=== PATIENT | female | born 2000 | race Caucasian/White ===

== ENCOUNTER 2022-04-29 10:12 | Emergency (ER) | payer BC, SELFPAY ==
--- NOTE | 2022-04-29 10:18 | ED.EAR ---
HPI - Ear Problem General Chief complaint: Ear Stated complaint: rt ear pain Time Seen by Provider: 04/29/22 10:17 Source: patient Mode of arrival: ambulatory Limitations: no limitations History of Present Illness HPI Narrative: Rina is a 22-year-old female patient presenting to the clinic today with complaints of right sided ear pain. She reports she has had right-sided ear pain, headache, and runny nose x4 days. She denies any fever chills Related Data Home Medications Medication Instructions Recorded Confirmed levonorgestrel-ethinyl estradiol 1 tablet DAILY 04/29/22 04/29/22 0.1 mg-20 mcg tablet (Vienva) Allergies Allergy/AdvReac Type Severity Reaction Status Date / Time No Known Allergies Allergy Verified 04/29/22 10:34 Review of Systems Review of Systems: Pertinent positives per HPI. Patient denies any fever, chills, rash, headache, visual changes, dizziness, sore throat, shortness of breath, chest pain, palpitations, nausea, vomiting, diarrhea, constipation, abdominal pain, or any urinary issues. PMFSH Comments At the time of my signature, I reviewed and agree with the nursing past medical, surgical, social, and family history. There is no relevant family history pertinent to the patient complaint. Exam Narrative: General: Well-developed, well nourished, in no apparent distress Head: Normocephalic, atraumatic Eyes: Pupils equally round and reactive to light bilaterally, EOM intact, sclera and conjunctive clear, no discharge, lids normal Ears: left TM intact and clear, right TM intact and bulging, ear canals clear, no drainage, grossly hearing normal. Nose: Nares patent, clear nasal discharge, no inflammation, no sinus tenderness. Mouth: Oropharynx without lesions or masses, good dentition, MMM. Neck: Supple, trachea midline, no enlargement of anterior or posterior cervical nodes, no thyroid masses or goiter palpable. Cardio: Regular rate and rhythm, s1 and s2 normal, no murmur appreciated. Resp: Clear to auscultation bilaterally anteriorly and posteriorly, no rhonchi, rales, wheezing or rubs Course Course Emergency Course: Portions of this record may have been created with voice recognition software. Level of Care: Express Care Visit Vital Signs Vital signs: Vital Signs Temperature 36.8 C 04/29/22 10:30 Pulse Rate 96 04/29/22 10:30 Respiratory Rate 18 04/29/22 10:30 Blood Pressure 142/96 H 04/29/22 10:30 Pulse Oximetry 99 04/29/22 10:30 Oxygen Delivery Room Air 04/29/22 10:30 Temperature 36.8 C 04/29/22 10:30 Pulse Rate 96 04/29/22 10:30 Respiratory Rate 18 04/29/22 10:30 Blood Pressure 142/96 H 04/29/22 10:30 Pulse Oximetry 99 04/29/22 10:30 Oxygen Delivery Room Air 04/29/22 10:30 Vital signs reviewed Medical Decision Making MDM Narrative Medical decision making narrative: At the time of the patient's resting comfortably on the exam table. I suspect the patient has right-sided eustachian tube dysfunction with upper respiratory infection. Prescription for prednisone was sent to the pharmacy. Supportive measures were discussed with the patient she voiced understanding of discharge instructions and agrees to the treatment plan. Differential Diagnosis Differential Diagnosis: eustachian tube dysfunction, otitis media, otitis externa, upper respiratory infection Vital Signs Vital Signs: Vital Signs Temperature 36.8 C 04/29/22 10:30 Pulse Rate 96 04/29/22 10:30 Respiratory Rate 18 04/29/22 10:30 Blood Pressure 142/96 H 04/29/22 10:30 Pulse Oximetry 99 04/29/22 10:30 Oxygen Delivery Room Air 04/29/22 10:30 Temperature 36.8 C 04/29/22 10:30 Pulse Rate 96 04/29/22 10:30 Respiratory Rate 18 04/29/22 10:30 Blood Pressure 142/96 H 04/29/22 10:30 Pulse Oximetry 99 04/29/22 10:30 Oxygen Delivery Room Air 04/29/22 10:30 Discharge Plan Discharge Clinical Impression: Eustachian tube
[2022-04-29 10:30] VITALS: BP 142/96; PULSE 96; RESP 18; TEMP 36.8; O2SAT 99
== END 2022-04-29 10:49 | disposition home or self-care (01) ==
LOC: EXPTROY 10:24
PROVIDERS: Emergency Provider Nurse Practitioner Family
DX: H69.81 Other specified disorders of Eustachian tube, right ear (principal); J06.9 Acute upper respiratory infection, unspecified; J45.909 Unspecified asthma, uncomplicated
CPT/HCPCS: 99203; G0463

== ENCOUNTER 2022-06-22 11:53 | Emergency (ER) | payer BC, SELFPAY ==
[2022-06-22 12:31] VITALS: BP 139/96; PULSE 95; RESP 20; TEMP 36.5; O2SAT 100
[2022-06-22 12:33] VITALS: BP 139/96; PULSE 95; RESP 20; TEMP 36.5; O2SAT 100
--- NOTE | 2022-06-22 12:59 | ED.URI ---
HPI - URI/Sore Throat General Chief Complaint: Upper Respiratory Infection Stated Complaint: Having Trouble Swallowing Time Seen by Provider: 06/22/22 12:59 History of Present Illness HPI Narrative: 22-year-old female presented for complaint of sore throat and fever since yesterday. 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 She endorses mild sinus congestion. She is taking Tylenol and ibuprofen for symptoms. She also takes regular antihistamine. She is able to talk and swallow her secretions. She denies shortness of breath, wheezing, nausea, vomiting, diarrhea. Related Data Home Medications Medication Instructions Recorded Confirmed levonorgestrel-ethinyl estradiol 1 tablet DAILY 04/29/22 06/22/22 0.1 mg-20 mcg tablet (Vienva) Allergies Allergy/AdvReac Type Severity Reaction Status Date / Time No Known Allergies Allergy Verified 06/22/22 12:32 Review of Systems Review of Systems: ROS per HPI Exam Narrative: GENERAL: Ill-appearing, no acute distress. EYES: conjunctivae clear ENT: Mucous membranes moist. TMs pearly sotelo with normal light reflex bilaterally; no tragal tenderness. Oropharynx severely erythematous. Tonsils enlarged 2+ without exudate. No drooling, no hoarseness, no trismus, uvula midline. No tripod positioning, hot potato voice, or soft palate swelling. NECK: Supple. No lymphadenopathy CHEST: Clear to auscultation, breath sounds equal. No respiratory distress, speaks in full sentences. HEART: Regular rate and rhythm. No murmur heard. SKIN: Warm, dry, no rash. NEURO: Alert and oriented x3. Course Course Emergency Course: Patient is aware of diagnosis, understands and agrees to treatment plan. Anticipatory guidance given. Patient agrees to follow-up as directed and is aware of reasons to seek care at the emergency department. Portions of this record may have been created with voice recognition software Level of Care: Express Care Visit Vital Signs Vital signs: Vital Signs Temperature 97.7 F 06/22/22 12:31 Pulse Rate 95 06/22/22 12:31 Respiratory Rate 20 06/22/22 12:31 Blood Pressure 139/96 H 06/22/22 12:31 Pulse Oximetry 100 06/22/22 12:31 Oxygen Delivery Room Air 06/22/22 12:31 Temperature 97.7 F 06/22/22 12:33 Pulse Rate 95 06/22/22 12:33 Respiratory Rate 20 06/22/22 12:33 Blood Pressure 139/96 H 06/22/22 12:33 Pulse Oximetry 100 06/22/22 12:33 Oxygen Delivery Room Air 06/22/22 12:33 MDM - URI/Sore Throat MDM Narrative Medical decision making narrative: Due to lack of resources, unable to test for rapid strep at this time. Patient verbalizes understanding. Plan to with antibiotics based on PE and CC. Advised supportive measures and signs and symptoms to go to the ER. Patient is appropriate for outpatient treatment and follow-up. Differential Diagnosis Differential diagnosis: Likely upper respiratory infection, viral infection and pharyngitis Discharge Plan Discharge Clinical Impression: Pharyngitis Patient Disposition: Home, Self-Care Condition: Stable Instructions: Antibiotic Form, Strep Throat (ED) Additional Instructions: - Take the antibiotic as directed. Fever and sore throat typically resolve within one to three days. Most patients can return to work after 24 hours of antibiotic therapy, provided you are fever free and otherwise well. -Eat and drink things that are easy to swallow, like soft foods, cool liquids, tea with honey, or popsicles . -Salt water gargles and/or may use topical anesthetic ( Chloraseptic spray) or lozenges to relieve dryness or throat pain -Alternate Tylenol and ibuprofen as needed for pain and fever as directed. -Frequent hand washing or hand systems qa analyst is one of the best ways to prevent spread of infection. Throw away the toothbrush after 24hours of antibiotic. -Follow up with primary care provider in 2-3 days if condition is not im
== END 2022-06-22 13:15 | disposition home or self-care (01) ==
PROVIDERS: Emergency Provider Nurse Practitioner Family
DX: J02.9 Acute pharyngitis, unspecified (principal)
CPT/HCPCS: 99213; G0463

== ENCOUNTER 2023-10-28 17:19 | Emergency (ER) | payer BC, SELFPAY ==
[2023-10-28 17:41] VITALS: BP 137/86; PULSE 89; RESP 16; TEMP 36.6; O2SAT 100
--- NOTE | 2023-10-28 18:07 | ED.GENADULT ---
HPI - General Adult General Chief complaint: Ear Stated complaint: RT Ear discomfort Source: patient Mode of arrival: ambulatory Limitations: no limitations History of Present Illness HPI narrative: Patient presents for evaluation of right ear symptoms it started a month ago. She initially felt like her ear was clogged. Today she developed pain in the right ear with muffled hearing. She denies any fever, chills, nausea, vomiting, drainage from the ear, cough or SOB. No recent sick contacted to her knowledge. She is not taking any medications to assist with her symptoms. Related Data Allergies Allergy/AdvReac Type Severity Reaction Status Date / Time No Known Allergies Allergy Verified 10/28/23 17:37 Review of Systems Review of Systems: CONSTITUTIONAL: Denies fever, chills, or sweats. EYES: Denies visual changes, redness, or discharge. ENT: Reports right sided ear pain with muffled hearing and right sided otalgia. Denies tinnitus, drainage from the ear, rhinorrhea, congestion, or sore throat CARDIOVASCULAR: Denies chest pain, palpitations, or edema. RESPIRATORY: Denies cough or dyspnea. GASTROINTESTINAL: Denies abdominal pain, nausea, vomiting, or diarrhea. GENITOURINARY: Denies dysuria or hematuria. SKIN: Denies rash or itching. MUSCULOSKELETAL: Denies back pain, joint pain, or myalgia. NEUROLOGIC: Denies headache, numbness, dizziness, or weakness. PSYCHIATRIC: Denies anxiety or depression. PMFSH Past Medical History Medical History No pertinent past medical history Surgical History Surgical History No pertinent past surgical history Family History Family History Mother Family history non-contributory Social History Social History Smoking status: Never smoker Substance use: never Living arrangements: with family Gender identity (if verbalized by the patient): Female Spiritual care concerns: No Exam Narrative: GENERAL: Well-appearing, well-nourished, and in no acute distress. HEAD: Normocephalic, atraumatic. EYES: PERRLA and EOMI. ENT: Nares clear, no rhinorrhea or epistaxis. Mucous membranes moist. Oropharynx without tonsillar hypertrophy exudate or other lesions. Right ear canal is ceruminous NECK: Supple. No adenopathy or masses. No carotid bruits or JVD CHEST: Clear to auscultation. No respiratory distress. No wheezes rales or rhonchi HEART: Regular rate and rhythm. No murmur heard. Normal peripheral pulses. ABDOMEN: Soft, nontender, nondistended, normal active bowel sounds. EXTREMITIES: Normal range of motion. No edema. SKIN: Warm, dry, no rash. NEURO: No focal deficits. Alert and oriented x3. PSYCH: Normal mood and affect. Course Course Emergency Course: This is a 23-year-old female who presented for evaluation of right-sided otalgia and muffled hearing. She had a cerumen impaction on exam. Ear was irrigated with water and H2O2. Cerumen was removed. Pt tolerated well. Ear canal was erythematous. Will dc with ofloxacin. Follow up with primary provider. Go to the ER for worsening symptoms. Pt in agreement with plan of care. Level of Care: Express Care Visit Vital Signs Vital signs: Vital Signs Temperature 36.6 C 10/28/23 17:41 Pulse Rate 89 10/28/23 17:41 Respiratory Rate 16 10/28/23 17:41 Blood Pressure 137/86 10/28/23 17:41 Pulse Oximetry 100 10/28/23 17:41 Oxygen Delivery Room Air 10/28/23 17:41 Temperature 36.6 C 10/28/23 17:41 Pulse Rate 89 10/28/23 17:41 Respiratory Rate 16 10/28/23 17:41 Blood Pressure 137/86 10/28/23 17:41 Pulse Oximetry 100 10/28/23 17:41 Oxygen Delivery Room Air 10/28/23 17:41 Medical Decision Making Vital Signs Vital Signs: Vital Sign
== END 2023-10-28 18:04 | disposition home or self-care (01) ==
PROVIDERS: Emergency Provider Nurse Practitioner
DX: H61.21 Impacted cerumen, right ear (principal)
CPT/HCPCS: 69209; 99213; A9270; G0463

== ENCOUNTER 2024-08-03 12:11 | Emergency (ER) | payer SELFPAY ==
[2024-08-03 12:25] VITALS: BP 123/68; PULSE 130; RESP 18; TEMP 37.2; O2SAT 97
[2024-08-03 12:37] LABS: EDCOVIDSCREEN Positive (Negative)
[2024-08-03 12:44] LABS: EDINFLUASCREEN Negative (Negative); EDINFLUBSCREEN Negative (Negative)
--- NOTE | 2024-08-03 12:49 | ED_ITS ---
HPI - URI/Sore Throat General Chief Complaint: Upper Respiratory Infection Stated Complaint: Fever / bodyache Time Seen by Provider: 08/03/24 12:49 Source: patient, RN notes reviewed and old records reviewed Mode of arrival: ambulatory Limitations: no limitations History of Present Illness HPI Narrative: patient presents with complaints fever, body ache, cough, and fatigue. She reports symptoms began yesterday, got much worse in the middle the night. She has been taking hlct-vct-[id number] medication for her symptoms with moderate relief. Related Data Allergies Allergy/AdvReac Type Severity Reaction Status Date / Time No Known Allergies Allergy Verified 08/03/24 12:22 Review of Systems Review of Systems: All systems reviewed & are unremarkable except as noted in HPI and below Constitutional: Constitutional: Reports no additional constitutional complaints, Reports body ache(s), Reports fever(s) and Reports lethargy ENT: Reports system reviewed and no additional complaints, except as documented, Reports nasal congestion and Reports nasal discharge Cardiovascular: Cardiovascular: Reports as per HPI and Reports no additional cardiovascular complaints Respiratory: Respiratory: Reports no additional respiratory complaints and Reports cough Gastrointestinal: Gastrointestinal: Reports no additional gastrointestinal complaints [facility], [facility] Past Medical History Medical History No pertinent past medical history Surgical History Surgical History No pertinent past surgical history Family History Family History Mother Family history non-contributory Social History Social History Smoking status: Never smoker Substance use: never Living arrangements: with family Gender identity (if verbalized by the patient): Female Spiritual care concerns: No Comments At the time of my signature, I reviewed and agree with the nursing past medical, surgical, social, and family history. There is no relevant family history pertinent to the patient complaint. Exam Const: General: cooperative, no acute distress, alert and awake Orientation/consciousness: oriented to person, oriented to place and oriented to time HENMT: Head: normal to inspection Mouth: Yes moist mucous membranes Throat: posterior oropharynx normal Resp: Effort & Inspection: normal respiratory effort and able to speak in complete sentences Auscultation: clear to auscultation bilaterally, no crack les, no rales, no rhonchi and no wheezes Cardio: Palpation: normal PMI Rate: regular rate and tachycardic Rhythm: regular rhythm Heart sounds: S1 normal heart sound present and S2 normal heart sound present Neuro: General: oriented to person, oriented to place and oriented to time Cranial nerves: Yes CN's II-XII intact bilaterally Psych: Appearance: grossly normal Thought process: Normal thought process present Insight: Good insight present (Psych) Judgement: Good judgement present (Psych) Course Course Level of Care: Express Care Visit Vital Signs Vital signs: Vital Signs Temperature 99.0 F 08/03/24 12:25 Pulse Rate 130 H 08/03/24 12:25 Respiratory Rate 18 08/03/24 12:25 Blood Pressure 123/68 08/03/24 12:25 Pulse Oximetry 97 08/03/24 12:25 Oxygen Delivery Room Air 08/03/24 12:25 Temperature 99.0 F 08/03/24 12:25 Pulse Rate 130 H 08/03/24 12:25 Respiratory Rate 18 08/03/24 12:25 Blood Pressure 123/68 08/03/24 12:25 Pulse Oximetry 97 08/03/24 12:25 Oxygen Delivery Room Air 08/03/24 12:25 Reviewed MDM - URI/Sore Throat MDM Narrative Medical decision making narrative: patient positive for COVID-19. Reassuring physical exam. Patient not in any distress. Work note provided. Patient advised to continue with mygi-eyb-tchwvin medications to treat her symptoms. Emergency department precautions discussed. Discharge instructions reviewed with patient, as well as provided in writing per nursing staff. The instructions also include specific and strict return/GO TO THE ER as well as f/u information. All questions have been answered, and the patient deny any further questions with discharge and discharge plan. Some parts of this dictation were generated by voice recognition software and may contain typographical and/or grammatical inaccuracies. Differential Diagnosis Differential diagnosis: Likely upper respiratory infection, sinusitis, viral infection and influenza Medical Records Attestation: I reviewed the patient's medical records. Lab Data Attestation: I reviewed the patient's lab results. Labs: Lab Results 08/03/24 08/03/24 Range/Units 12:36 12:42 POC Influenza A Ag Negative (Negative) POC Influenza B Ag Negative (Negative) POC SARS CoV-2 Ag Positive (Negative) Discharge Plan Discharge Clinical Impression: COVID-19 Patient Disposition: Home, Self-Care Condition: Stable Instructions: Antibiotic Form, How to Recover from COVID-19 at Home (ED) Additional Instructions: Use hheh-iiv-lmaxsqk medications to treat your symptoms. Follow package instructions. Follow-up with primary care provider. Emergency department for new or worsening Patient Language: Singaporean Prescriptions: No Action ofloxacin 0.3 % drops 10 drp RIGHT EAR DAILY 7 Days Qty: 10 0RF Follow-up/Referrals: PHYSICIAN,WOODS MANAGER [Primary Care Provider] - Stand Alone Forms: Work/School Release IP Time of Disposition: 12:58
--- OUTSIDE RECORDS SUMMARY | 2024-08-03 12:57 | XMS_ITS | Encounter Summary ---
Author Organization [facility] Address [address] [facility]. [place], [place] [id number] [place] [address] Care Team Providers Care Pattern Clerk Name Role Phone Seble Johnson Primary Care Provider [phone] Otto Sanchez APRN Primary Care Provider [phone] Encounter Details Date Type Department Care Team (Late st Contact Info) Description 06/25/2018 Abstract [facility] MultiSpecialty [facility] [address] [place] [id number] Seble Johnson FNP [address] [place] [address] Social History Tobacco Use Types Packs/Day Years Used Date Smoking Tobacco: Never Smokeless Tobacco: Never Comments Unknown Sex and Gender Information Value Date Recorded Sex Assigned at Not on file Legal Sex Female 7:37 PM CDT Gender Identity Not on file Sexual Orientation Not on file documented as of this encounter Plan of Treatment Not on file documented as of this encounter Visit Diagnoses Not on filedocumented in this encounter Care Teams Pattern Clerk Relationship Specialty Start Date End Date Seble Johnson FNP [address] [place] [address] PCP - General NURSE PRACTITIONER 06/25/18 12/02/23 Otto Sanchez APRN [address] [place] [address] PCP - General NURSE PRACTITIONER 12/03/23 documented as of this encounter
--- OUTSIDE RECORDS SUMMARY | 2024-08-03 12:57 | XMS_ITS | Encounter Summary ---
Author Organization [facility] Address Count includes the [facility] [facility] [place] [address] [place] [address] Care Team Providers Care Head Orthopedic Team Physician Name Role Phone Seble Johnson Primary Care Provider [phone] Otto Sanchez APRN Primary Care Provider [phone] Encounter Details Date Type Department Care Team (Late st Contact Info) Description 09/20/2017 Abstract [facility] [address] [place] [address] , Generic Conversion[facility] Social History Tobacco Use Types Packs/Day Years Used Date Smoking Tobacco: Never Assessed Comments Unknown Sex and Gender Information Value Date Recorded Sex Assigned at Not on file Legal Sex Female 7:37 PM CDT Gender Identity Not on file Sexual Orientation Not on file documented as of this encounter Plan of Treatment Not on file documented as of this encounter Visit Diagnoses Not on filedocumented in this encounter Care Teams Head Orthopedic Team Physician Relationship Specialty Start Date End Date Seble Johnson FNP [address] [place], [place] [id number] PCP - General NURSE PRACTITIONER 06/25/18 12/02/23 Otto Sanchez APRN [address], [place] [id number] PCP - General NURSE PRACTITIONER 12/03/23 documented as of this encounter
--- OUTSIDE RECORDS SUMMARY | 2024-08-03 12:57 | XMS_ITS | Encounter Summary ---
Author Organization [facility] Address [facility] [facility]. [place], [place] [address] [place] [address] Care Team Providers Care American Indian Studies Professor Name Role Phone Seble Johnson Primary Care Provider [phone] Otto Sanchez APRN Primary Care Provider [phone] Encounter Details Date Type Department Care Team (Late st Contact Info) Description 09/18/2022 NextDocst Message [facility] MultiSpecialty Care [facility] [address] [place] [address] Seble Johnson FNP [address] [place] [address] orange staining Social History Tobacco Use Types Packs/Day Years Used Date Smoking Tobacco: Never Smokeless Tobacco: Never Alcohol Use Standard Drinks/Week Comments Never 0 (1 standard drink = 0.6 oz pur e alcohol) AUDIT-C Answer Date Recorded Frequency of Alcohol Consumption Never 09/07/2019 Average Number of Drinks Not on file 020 Frequency of Binge Drinking Not on file 09/2019 PHQ-2 Answer Date Recorded Patient Health Questionnaire-2 Score 0 06/28/2022 Comments No Sex and Gender Information Value Date Recorded Sex Assigned at Not on file Legal Sex Female 7:37 PM CDT Gender Identity Not on file Sexual Orientation Not on file documented as of this encounter Progress Notes * TRES Flores - 09/19/2022 3:42 PM CDTFrom: Rina Revacarli StrattonHarwood To: Seble Johnson Sent: 09/18/2022 6:20 PM CDT Subject: [place] stain between my fingers Hi Luna I have some orange stain in between some of my fingers on both hands. There is nothing that could have stained them. I have scrubbed and scrubbed but it???s not going away. I have had this for about 2 days. Do I need to get blood work, or my thyroid checked? documented in this encounter Plan of Treatment Not on file documented as of this encounter Visit Diagnoses Not on filedocumented in this encounter Additional Health Concerns Assessment Noted Time PHQ-9 Depression Total Score: 0 03/13/20 21 8:28 AM CDT documented as of this encounter Care Teams American Indian Studies Professor Relationship Specialty Start Date End Date Seble Johnson FNP [address] [place] [address] PCP - General NURSE PRACTITIONER 06/25/18 12/02/23 Otto Sanchez APRN [address] [place] [address] PCP - General NURSE PRACTITIONER 12/03/23 documented as of this encounter
--- OUTSIDE RECORDS SUMMARY | 2024-08-03 12:57 | XMS_ITS | Clinical Summary ---
Author Organization [facility] Address [facility] [place] [address] [place] [address] Care Team Providers Care Setter [employer] Name Role Phone Otto Sanchez EUGENIA Primary Care Provider [phone] Allergies Active Allergy Reactions Criticality Noted Date Comments Lisdexamfetamine Tachycardia 03/13/2021 Medications naproxen 250 MG tabletIndications :Dysmenorrhea in adolescent Take 1 tablet (250 mg total) by mouth as needed. 90 tablet 1 9 Active ondansetron 4 MG tabletIndications :Nausea TAKE 1 TABLET EVERY 6 HOURSAS NEEDED FOR NAUSEA 40 tablet 9 Active triamcinolone 0.025 % creamIndications: Contact dermatitis and eczema Apply topically 2 (two) times daily. 453.6 g 0 Active fluticasone propionate 50 MCG/ACT nasal sprayIndications: Non-seasonal allergic rhinitis, unspecified trigger 2 sprays by Each Nostril route daily. 16 g 5 1 Active azithromycin (ZITHROMAX Z-HARRISON) 250 MG tabletIndications :Acute non-recurrent frontal sinusitis Take 2 tablets by mouth on day one then 1 daily for four days. 6 tablet 2 Active Additional Information Patient not taking.Reported on 05/01/2023 VIENVA 0.1-20 MG-MCG tabletIndications :Dysmenorrhea in adolescent TAKE 1 TABLET BY MOUTH DAILY 84 tablet 3 Active Additional Information Patient not taking.Reported on 05/01/2023 loratadine (CLARITIN) 10 MG tabletIndications :Non-seasonal allergic rhinitis, unspecified trigger Take 1 tablet (10 mg total) by mouth daily. 90 tablet 3 3 Active montelukast (SINGULAIR) 10 MG tabletIndications :Asthma due to environmental allergies ([facility]) Take 1 tablet (10 mg total) by mouth nightly at bedtime. at bedtime. 90 tablet 3 Active Active Problems Problem Noted Date Diagnosed Date Dysmenorrhea 06/25/2018 Non-seasonal allergic rhinitis, unspecified trig missy 06/25/2018 Scoliosis, unspecified scoli osis type, unspecified spinal region 06/25/2018 Abnormal thyroid function test 08/19/2016 Overview (09/10/2019): Transitioned From: Low thyroxine (T4) level Acquired pes planovalgus, left 05/24/2015 Acquired pes planovalgus, right 05/24/2015 Hallux valgus 05/09/2015 Foot deformity, bilateral 05/01/2015 Scoliosis 02/17/2014 Overview (09/10/2019): Description: 5 degree to the right in the LumboThoracic spine per xray 02/2014 Resolved Problems Problem Noted Date Diagnosed Date Resolved Date 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 02/03/2020 05/01/2023 Dysmenorrhea in adolescent 06/25/2018 1 Breast asymmetry in female 10/12/2013 1 Immunizations Name Administration Dates Next Due Dtap 02/14/2006, 3,2001,07/03,2001 HPV GARDASIL 9-VALENT 08/24/2020,05/25/2019,03/07 Hepatitis A (Generic) 03/24/2019 Hepatitis B/Hib 3 Dose Schedule 03/03/2002,07/03,2001 Influenza (Generic) 04/26/2009 Influenza Adult (Generic) 05/05/2020,04/23/2019 Influenza Virus, Split 6-35 Mo 8,05/08/2007,05/22/2006,05/02 REJI ([employer]) COVID-19 AD26 VACCINE 0.5 ML IM SUSP 09/18/2020 MMR 02/14/2006,03/03/2002 Menactra 02/05/2019,02/01/2016 Meningococcal Vac A,C,Y,W-135 Sc 02/01/2016 Pneumococcal (Prevnar 7) 09/17/2002,03/03/2002,1 09/03/2000 Polio Ipv (Generic) 02/14/2006, 2,2001,05/01 Tdap (Generic) 09/24/2012 Varicella Vaccine 02/01/2016,03/03/2002 Family History Medical History Relation Comments No Known Problems Brother No Known Problems Father Hypertension Maternal Grandfather Hypertension Maternal Grandmother No Known Problems Mother COPD Paternal Grandfather COPD Paternal Grandmother No Known Problems Sister Relation Status Comments Brother Alive Father Alive Maternal Grandfather Alive Maternal Grandmother Alive Mother Alive Paternal Grandfather (Age 50s) Paternal Grandmother (Age 60s) Sister Alive Social History Tobacco Use Types Packs/Day Years [...] Date Recorded Patient Health Questionnaire-2 Score 0 05/01/2023 Comments No Sex and Gender Information Value Date Recorded Sex Assigned at Not on file Legal Sex Female 7:37 PM CDT Gender Identity Not on file Sexual Orientation Not on file Last Filed Vital Signs Vital Sign Reading Time Taken Comments Blood Pressure 110/72 05/01/2023 2:39 PM CDT Pulse 89 05/01/2023 2:19 PM CDT Temperature 36.8 ??C (98.3 ??F) 05/01/2023 2:19 PM CD T Respiratory Rate 18 05/01/2023 2:19 PM CDT Oxygen Saturation 98% 05/01/2023 2:19 PM CDT Inhaled Oxygen Concentration - - Weight 58.6 kg (129 lb 3.2 oz) 05/01/2023 2:19 P M CDT Height 165.1 cm (5' 5 ) 05/01/2023 2:19 PM CDT Body Mass Index 21.5 05/01/2023 2:19 PM CDT Plan of Treatment Health Maintenance Due Date Last Done Comments Cervical Cancer Screening Pap Smear (Age 21 to 29) Every 3 Years 2001 Cervical Cancer Screening 2001 Meningococcal B Vaccine (1 of 2 - Standard) 2017 Hepatitis C 2019 Annual Physical 08/24/2021 08/24/2020 DTaP, Tdap and Td Vaccines (7 - Td or Tdap) 09/24/2022 09/24/2012, 02/14/2006, 09/17/2002, Additional history exists COVID-19 Vaccine ( - season) 2024 09/18/2020 Influenza Adult (#1) 2024 05/05/2020, 04/23/2019, 04/26/2009 PHQ-2 (Physician [place]) 05/01/2024 05/01/2023 PHQ-2 (Physician [place]) 07/07/2024 05/01/2023 Hepatitis B Vaccines Completed 03/03/2002, 2001, 2001 Pneumococcal Vaccine: Pediatrics (0 to 5 Years) and At-Risk Patients (6 to 64 Years) Aged Out 09/17/2002, 03/03/2002, 2001 No longer eligible based on patient's age to complete this topic Meningococcal Vaccine Completed 02/05/2019 , 02/01/2016, 02/01/2016 HPV Vaccines Completed 08/24/2020, 05/07, 03/24/2019 RSV Immunizations Under 20 Months Aged Out No longer eligible based on patient's age to complete this topic Insurance [facility] Care Teams Setter [employer] Relationship Specialty Start Date End Date Otto Sanchez APRN [address] [place] [address] PCP - General NURSE PRACTITIONER 12/03/23
== END 2024-08-03 13:00 | disposition home or self-care (01) ==
PROVIDERS: Emergency Provider Nurse Practitioner Family
DX: U07.1 COVID-19 (principal); Z20.822 Contact with and (suspected) exposure to COVID-19
CPT/HCPCS: 87426; 87804; 99213; G0463